=== PATIENT | male | born 1975 | race Caucasian/White ===

== ENCOUNTER → 2021-11-02 12:46 | Outpatient (CLI) | payer SELFPAY ==
--- NOTE | ~2021-11-02 | MR_ITS ---
EXAMINATION: MR knee LT wo con DATE: 11/02/2021 13:26 INDICATION: Left knee injury TECHNIQUE: Magnetic resonance imaging (MRI) of the left knee was performed without intravenous contra st. Sequences included coronal PD-weighted FSE, coronal PD-weighted FS FSE, sagittal T2-weighted FSE , sagittal PD-weighted FS FSE and axial PD weighted fat saturated FSE. COMPARISON: None. FINDINGS: Medial compartment: Complex tear at the posterior horn which involves the free edge at the lateral aspect of the posterio r horn and with the tear plane extending peripherally and medially along the inferior articular surfa ce of the more medial posterior horn. Articular cartilage is normal. There is mild edema underlying t he posterior medial rim of the medial tibial plateau which is of prior trauma could be related to bon e contusion with differential including stress reaction related to altered weight distribution or rel ated to otherwise occult overlying chondromalacia. Lateral compartment: Lateral meniscus is normal. Articular cartilage is normal. Patellofemoral compartment: Small full/near full-thickness chondral fissure at the central aspect of the medial patellar facet. R emaining cartilage in the tibiofemoral compartment is normal. Ligaments and tendons: Anterior and posterior cruciate ligaments are normal. There is thickening of the proximal medial lamonte ateral ligament with mild surrounding edema consistent with low-grade sprain. The fibular collateral ligament complex is normal. The extensor mechanism is normal. The visualized medial and lateral hamst ring tendons as well as the iliotibial band are normal. Fluid: Small knee joint effusion at the suprapatellar pouch. No loose osteochondral bodies identified. Osseous/other: Elongated low signal intensity bone island in the distal metadiaphyseal region of the femur. Alignmen t is normal. No fracture pathologic marrow replacing process. IMPRESSION: 1. Complex tear at the posterior horn of the medial meniscus. 2. Low-grade sprain of the proximal medial collateral ligament. 3. Small region of marrow edema along the medial rim of the medial tibial plateau which could be rela daren to posttraumatic bone contusion, stress reaction related to altered weight discrete ulceration re sulting from the meniscal tear or related to otherwise occult overlying chondromalacia. 4. Small deep chondral fissure at the medial patellar facet. Reviewed, dictated and finalized at location A. IMPRESSION: 1. Complex tear at the posterior horn of the medial meniscus. 2. Low-grade sprain of the proximal medial collateral ligament. 3. Small region of marrow edema along the medial rim of the medial tibial plate au which could be related to posttraumatic bone contusion, stress reaction rela daren to altered weight discrete ulceration resulting from the meniscal tear or r elated to otherwise occult overlying chondromalacia. 4. Small deep chondral fissure at the medial patellar facet.
== END ==
PROVIDERS: PCP Family Medicine; Visit Provider Orthopaedic Surgery
DX: M25.662 Stiffness of left knee, not elsewhere classified (principal); M25.462 Effusion, left knee; S89.92XA Unspecified injury of left lower leg, initial encounter; S83.232A Complex tear of medial meniscus, current injury, left knee, initial encounter; S83.412A Sprain of medial collateral ligament of left knee, initial encounter; M79.89 Other specified soft tissue disorders; M24.10 Other articular cartilage disorders, unspecified site; M94.8X6 Other specified disorders of cartilage, lower leg
CPT/HCPCS: 99199; 73721